=== PATIENT | male | born 1980 | race Caucasian/White ===

== ENCOUNTER 2016-08-08 17:52 | Emergency (ER) | payer MEDICAID, OTHER ==
[2016-08-08 18:13] VITALS: BP 125/70
[2016-08-08] MEDS ORDERED: Ibuprofen TAB* 800 MG PO ONE (18:27)
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
== END 2016-08-08 19:00 | disposition home or self-care (01) ==
LOC: ED 17:52
DX: M25.512 Pain in left shoulder (principal); S43.005A Unspecified dislocation of left shoulder joint, initial encounter; V49.9XXA Car occupant (driver) (passenger) injured in unspecified traffic accident, initial encounter; Y93.9 Activity, unspecified; Y92.9 Unspecified place or not applicable; Y99.9 Unspecified external cause status
CPT/HCPCS: 99282; A9270-GY